=== PATIENT | male | born 1955 | race Caucasian/White ===

== ENCOUNTER 2021-03-27 07:45 | Outpatient (REF) | payer BC, SELFPAY ==
[2021-03-27 11:07] LABS: Hematocrit 50.7 % (42-52); Hemoglobin 16.5 g/dl (14.0-18.0); Mean Corpuscular HGB Conc 32.5 g/dl (31.0-36.0); Mean Corpuscular Hemoglobin 30.2 pg (27.0-33.0); Mean Corpuscular Volume 92.7 fL (80-98); Mean Platelet Volume 9.5 fL (9.4-12.4); Platelet Count 215 X10*3/uL (160-400); Red Blood Count 5.47 X10*6/uL (4.60-5.80); Red Cell Distribution Width 12.3 % (11.0-16.0); White Blood Count 5.2 X10*3/uL (4.8-10.8)
[2021-03-27 11:14] LABS: Estimated Average Glucose 108 mg/dL; Hemoglobin A1c % 5.4 %
[2021-03-27 12:01] LABS: Alanine Aminotransferase 51 U/L (0-40); Albumin Level 4.4 g/dL (3.5-5.0); Alkaline Phosphatase 83 U/L (39-117); Anion Gap 14 (12-20); Aspartate Amino Transferase 37 U/L (5-37); Bilirubin Total 1.1 mg/dL (0.0-1.0); Blood Urea Nitrogen 13 mg/dL (9-16); Calcium 9.1 mg/dL (8.4-10.2); Carbon Dioxide 26 mmol/L (22-29); Chloride 105 mmol/L (96-108); Cholesterol 205 mg/dL; Estimated Glomerular Filt Rate > 60; Glucose Fasting 100 mg/dL (60-99); HDL Cholesterol 69 mg/dL; LDL Cholesterol Calculated 110 mg/dl; Potassium 4.7 mmol/L (3.3-5.1); Sodium 140 mmol/L (135-145); Total Protein 7.1 g/dL (6.5-8.0); Triglycerides 130 mg/dL
[2021-03-27 12:03] LABS: Prostate Specific Antigen 2.13 ng/mL (<0.05-4.0)
== END 2021-03-27 07:46 | disposition home or self-care (01) ==
LOC: HO.MANLDS 07:45
PROVIDERS: PCP Internal Medicine; Visit Provider Internal Medicine
DX: Z12.5 Encounter for screening for malignant neoplasm of prostate (principal); E78.00 Pure hypercholesterolemia, unspecified; R73.01 Impaired fasting glucose
CPT/HCPCS: 36415; 80053; 80061; 83036; 84153; 85027

== ENCOUNTER 2021-09-30 07:29 | Outpatient (REF) | payer BC, SELFPAY ==
[2021-09-30 11:33] LABS: Appearance Urine CLEAR; Color Urine YELLOW; Glucose Urine UA NEG (NEG); Leukocyte Esterase Urine NEG (NEG); Nitrite Urine NEG (NEG); PH 6.5 (5.0-8.0); Specific Gravity - Urine 1.025 (1.005-1.025); UACC Culture Trigger NO; Urine Blood NEG (NEG); Urine Ketones NEG (NEG); Urine Protein 1+ MG/DL (NEG-TRACE)
[2021-09-30 11:57] LABS: RBC Urine 0-2 /HPF (0); WBC Urine 0 /HPF (0-4)
[2021-09-30 11:59] LABS: Mucus Urine 1+ /LPF; Squamous Epithelial Cell Urine TRACE /LPF
== END 2021-09-30 07:30 | disposition home or self-care (01) ==
LOC: HO.MANLDS 07:29
PROVIDERS: PCP Internal Medicine; Visit Provider Internal Medicine
DX: R31.29 Other microscopic hematuria (principal)
CPT/HCPCS: 81001

== ENCOUNTER 2021-12-04 07:33 | Outpatient (REF) | payer BC, SELFPAY ==
[2021-12-04 11:18] LABS: Hemoglobin 16.8 g/dl (14.0-18.0); Mean Corpuscular HGB Conc 32.3 g/dl (31.0-36.0); Mean Corpuscular Hemoglobin 29.9 pg (27.0-33.0); Mean Corpuscular Volume 92.5 fL (80.0-98.0); Mean Platelet Volume 10.3 fL (9.4-12.4); Platelet Count 254 X10*3/uL (160-400); Red Blood Count 5.62 X10*6/uL (4.60-5.80); Red Cell Distribution Width 12.2 % (11.0-16.0); White Blood Count 5.4 X10*3/uL (4.8-10.8)
[2021-12-04 11:29] LABS: Estimated Average Glucose 108 mg/dL; Hemoglobin A1C 151.3305 umol/L; Hemoglobin A1c % 5.4 %
[2021-12-04 11:30] LABS: Alanine Aminotransferase 44 U/L (0-40); Albumin Level 4.4 g/dL (3.5-5.0); Alkaline Phosphatase 88 U/L (39-117); Anion Gap 13 (12-20); Aspartate Amino Transferase 33 U/L (5-37); Blood Urea Nitrogen 15 mg/dL (9-16); Calcium 9.2 mg/dL (8.4-10.2); Carbon Dioxide 29 mmol/L (22-29); Chloride 103 mmol/L (96-108); Cholesterol 208 mg/dL; Estimated Glomerular Filt Rate > 60; Glucose Fasting 108 mg/dL (60-99); HDL Cholesterol 66 mg/dL; LDL Cholesterol Calculated 120 mg/dl; Potassium 4.2 mmol/L (3.3-5.1); Sodium 141 mmol/L (135-145); Total Protein 7.1 g/dL (6.5-8.0); Triglycerides 112 mg/dL
[2021-12-04 11:59] LABS: Prostate Specific Antigen 1.67 ng/mL (<0.05-4.0)
== END 2021-12-04 07:34 | disposition home or self-care (01) ==
LOC: HO.MANLDS 07:33
PROVIDERS: PCP Internal Medicine; Visit Provider Internal Medicine
DX: E78.00 Pure hypercholesterolemia, unspecified (principal); R73.01 Impaired fasting glucose; I10 Essential (primary) hypertension; Z12.5 Encounter for screening for malignant neoplasm of prostate
CPT/HCPCS: 36415; 80053; 80061; 83036; 84153; 85027

== ENCOUNTER 2022-10-12 07:41 | Outpatient (REF) | payer BC, SELFPAY ==
[2022-10-12 11:29] LABS: MANUAL DIFF FLAG NO
[2022-10-12 11:49] LABS: Basophils Absolute Auto 0.1 X10*3/uL (0.0-0.2); Basophils Percent Auto 0.8 % (0-2); Eosinophils Absolute Auto 0.4 X10*3/uL (0.0-0.4); Eosinophils Percent Auto 7.3 % (0-4); Hematocrit 51.7 % (42.0-52.0); Hemoglobin 16.5 g/dl (14.0-18.0); Imm Gran Abs Auto 0.02 X10*3/uL (0.00-0.03); Imm Gran Pct Auto 0.3 % (0.0-0.4); Lymphocytes Absolute Auto 1.3 X10*3/uL (1.2-4.9); Lymphocytes Percent Auto 22.1 % (20-40); Mean Corpuscular HGB Conc 31.9 g/dl (31.0-36.0); Mean Corpuscular Hemoglobin 29.7 pg (27.0-33.0); Mean Platelet Volume 9.9 fL (9.4-12.4); Monocytes Absolute Auto 0.6 X10*3/uL (0.1-1.2); Monocytes Percent Auto 10.6 % (2-11); Neutrophils Absolute Auto 3.6 x10*3/uL (2.0-8.3); Neutrophils Percent Auto 58.9 % (45-73); Platelet Count 241 X10*3/uL (160-400); Red Blood Count 5.56 X10*6/uL (4.60-5.80); Red Cell Distribution Width 12.6 % (11.0-16.0)
[2022-10-12 12:18] LABS: Estimated Average Glucose 111 mg/dL; Hemoglobin A1C 149.9164 umol/L; Hemoglobin A1c % 5.5 %
[2022-10-12 12:48] LABS: Prostate Specific Antigen 2.35 ng/mL (<0.05-4.0); Vitamin D 25-OH Total 9.8 ng/mL (>30)
[2022-10-12 13:46] LABS: Alanine Aminotransferase 41 U/L (0-40); Albumin Level 4.2 g/dL (3.5-5.0); Alkaline Phosphatase 86 U/L (39-117); Anion Gap 14 (12-20); Aspartate Amino Transferase 32 U/L (5-37); Bilirubin Total 0.9 mg/dL (0.0-1.0); Blood Urea Nitrogen 20 mg/dL (9-16); Calcium 9.2 mg/dL (8.4-10.2); Carbon Dioxide 29 mmol/L (22-29); Chloride 103 mmol/L (96-108); Cholesterol 202 mg/dL; Estimated Glomerular Filt Rate > 60; Glucose Random 110 mg/dL (60-115); HDL Cholesterol 71 mg/dL; LDL Cholesterol Calculated 110 mg/dl; Potassium 5.4 mmol/L (3.3-5.1); Sodium 141 mmol/L (135-145); Total Protein 6.7 g/dL (6.5-8.0); Triglycerides 108 mg/dL
== END 2022-10-12 07:42 | disposition home or self-care (01) ==
LOC: HO.MANLDS 07:41
PROVIDERS: Visit Provider Internal Medicine
DX: Z00.00 Encounter for general adult medical examination without abnormal findings (principal); Z12.5 Encounter for screening for malignant neoplasm of prostate; R73.01 Impaired fasting glucose
CPT/HCPCS: 36415; 80053; 80061; 82306; 83036; 84153; 85025

== ENCOUNTER 2022-10-20 09:38 | Outpatient (REF) | payer BC, SELFPAY ==
[2022-10-20 11:35] LABS: Anion Gap 12 (12-20); Blood Urea Nitrogen 20 mg/dL (9-16); Calcium 9.2 mg/dL (8.4-10.2); Carbon Dioxide 31 mmol/L (22-29); Chloride 103 mmol/L (96-108); Estimated Glomerular Filt Rate 55; Glucose Random 92 mg/dL (60-115); Sodium 141 mmol/L (135-145)
[2022-10-20 11:56] LABS: Vitamin D 25-OH Total 14.7 ng/mL (>30)
== END 2022-10-20 09:39 | disposition home or self-care (01) ==
LOC: HO.WFDLDS 09:38
PROVIDERS: Visit Provider Internal Medicine
DX: E87.5 Hyperkalemia (principal); E55.9 Vitamin D deficiency, unspecified
CPT/HCPCS: 36415; 80048; 82306

== ENCOUNTER 2024-02-08 10:33 | Outpatient (REF) | payer MEDICARE, BC, SELFPAY ==
[2024-02-08 13:45] LABS: Alanine Aminotransferase 47 U/L (0-40); Albumin Level 4.5 g/dL (3.5-5.0); Alkaline Phosphatase 96 U/L (39-117); Anion Gap 16 (12-20); Aspartate Amino Transferase 39 U/L (5-37); Bilirubin Total 0.7 mg/dL (0.0-1.0); Blood Urea Nitrogen 15 mg/dL (9-16); Calcium 9.7 mg/dL (8.4-10.2); Carbon Dioxide 28 mmol/L (22-29); Chloride 100 mmol/L (96-108); Estimated Glomerular Filt Rate > 60; Glucose Random 101 mg/dL (60-115); Potassium 5.1 mmol/L (3.3-5.1); Sodium 139 mmol/L (135-145); Total Protein 7.7 g/dL (6.5-8.0)
== END 2024-02-08 10:34 | disposition home or self-care (01) ==
LOC: HO.MANLDS 10:33
PROVIDERS: Visit Provider Physician Assistant
DX: I10 Essential (primary) hypertension (principal)
CPT/HCPCS: 36415; 80053

== ENCOUNTER 2024-12-28 07:49 | Outpatient (REF) | payer MEDICARE, SELFPAY ==
--- OUTSIDE RECORDS SUMMARY | 2024-12-28 07:53 | XMS_ITS | Data Portability ---
Author Organization [facility] Address [address] [place] [address] Assessment Encounter Date Assessment Date Assessment LastModified by Organization Details LastModified Time 01/24/2024 01/24/2024 The patient denies little pleasure in activities they find enjoyable, feeling depressed, difficulties sleeping, feeling tired or having little energy, change in appetite, feeling guilty, overwhelmed or unmotivated. The patient denies suicidal ideation, thoughts of hurting themselves or others. Their mood is appropriate, they show good judgement and clear understanding of the conversation. They are orientated to time, place and person. They are not expressing any concerning thoughts or actions that would need further investigation and treatment for mental health. The patient denies recent falls or recurrent falls. Denies instability, weakness, abnormal gait, or difficulties with movement. The patient wears correct, supportive shoes and is not otherwise severely visually impaired. The patient is full weight bearing and if using the assistance of a cane or walker feels supported and stable with the use of such devices. All medical conditions have been taken into account that may pose a risk for the patient for falls. Home bertram, carpets and/or rugs do not pose a challenge for the patient. The patient has been educated about the use of vitamin D supplementation for bone health and prevention of hypotensive episodes that may increase risk for fall. All question and concerns were answered to the patient's satisfaction. 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 REVIEW OF PRIOR EXTERNAL NOTES/RESULTS, ORDERING OF TEST(S) CATEGORY 2. 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) MDM HIGH MUST MEET 2 OUT OF 3 ELEMENTS: PROBLEMS, DATA OR RISK ELEMENT 1: PROBLEMS 1 OR MORE CHRONIC ILLNESS W/SEVERE EXACERBATION, PROGRESSION MAY REQUIRE HOSPITAL LEVEL CARE OR 1 ACUTE OR CHRONIC ILLNESS OR INJURY THAT POSES A THREAT TO LIFE OR BODILY FUNCTION ELEMENT 2: DATA: MUST MEET 2 OF 3 CATEGORIES CATEGORY 1 REVIEW OF PRIOR EXTERNAL NOTES REVIEW OF THE RESULTS ORDERING OF EACH TEST ASSESSMENT REQUIRING INDEPENDENT HISTORIAN(S) CATEGORY 2: INDEPENDENT INTERPRETATION OF TESTS BY ANOTHER PROVIDER/SPECIALI ST CATEGORY 3: DISCUSSION OF MGT OR TEST INTERPRETATION W/EXTERNAL PHYSICIAN/SPECIAL IST ELEMENT 3: RISK HIGH RISK OF MORBIDITY FROM ADDITIONAL DIAGNOSTIC TESTING OR TREATMENT PROVIDER MUST THOROUGHLY DOCUMENT EACH ELEMENT THAT IS COVERED The patient presented to their appointment today for multiple concerns requiring moderate to high-level decision making and took over 40-45 minutes for an adequate and appropriate history, exam, assessment and treatment plan. This appointment was done with an established patient. Not available 12/18/2024 15:47:27 Plan of Treatment Reminders Order Date Submit Date Provider Last Modified By Organization Details Last Modified Time Details Appointments ANNUAL EXAM 2024 11:30A M DR ASHTON Not available Not available Not available Lab CMP, serum or plasma 2024 025 [facility], [address] [place] [address], [place], [address], 12/18/2024 15:49:01 CBC 2024 025 [facility], [address] [place] [address], [place], [address], 12/18/2024 15:49:01 PSA, serum or plasma 2024 025 [facility], [address] [place] [address], [place], [address], 12/18/2024 15:49:01 lipid panel, blood 2024 025 [facility], [address] [place] [address], [address], 12/18/2024 15:49:01 HbA1c (hemoglob in A1c), blood 2024 025 [facility], [address] [place] [address], [address], 12/18/2024 15:49:01 CMP, serum or plasma 2023 024 [facility], [address] [place] [address], [place], [address], 02/09/2024 11:25:05 Referral sleep medicine referral - home sleep study req 2024 025 [email or web address] Bogdan Curtis MD, [address], [place], [address], 12/18/2024 15:52:15 Procedures None recorded. Surgeries None recorded. Imaging None recorded. Medication Orders meloxicam 15 mg tablet 2024 025 [facility]2024, [address] [place], [address], 12/18/2024 15:47:47 losartan 100 mg tablet 2024 025 [facility]2024, [address] [place], [address], 12/18/2024 15:47:46 finasteri de 5 mg tablet 2024 025 [facility] #2024, [address] [place], [address], 12/18/2024 15:47:46 spironola ctone 25 mg tablet 2023 [id number], [address] [place], [place], [id number], 02/01/2024 09:35:16 amlodipin e 10 mg tablet 2023 024 [facility] #[id number], [address] [place], [place], [phone], 02/01/2024 09:33:23 Patient TargetsNo targets recorded. Patient Instructions Encounter Date Encounter Id Patient Instructions Last Modified By Organization Details Last Modified Time 12/18/2024 [id number] sleep apnea: car e instructions Not available 12/18/2024 15:47:41 high blood pressure: care instructions Not available 12/18/2024 15:47:41 learning about high blood pressure Not available 12/18/2024 15:47:41 benign prostatic hyperplasia: care instructions Not available 12/18/2024 15:47:41 Reason for Referral Sleep Medicine Referral for Sleep apnea home sleep study req Referring Physician: Sergo Ashton, Internal [facility], Encounter Date: 12/18/2024 Results Created Date Observation Date Name Description Value Unit Range Abnormal Flag Note LastModifiedBy Organization Detail LastModifiedTime Result Notes None recorded. Problems Name Problem SNOMED Code Status Onset Date Resolution Date Notes Provider Name and Address Organization Details Recorded Time Varicose veins of lower extremity 21396351 Active 2018 Not Available [facility] 2 12:35:30 Osteoarth ritis 396785611 Active 2020 Not Available [facility] 2 12:35:30 Impaired fasting glycemia 243518736 Active 2017 Leonarda rebolledo [place] [facility] 5 09:35:12 Hyperchol esterolem ia 96907748 Active 2017 LOR Vinson [facility] 5 09:35:12 Essential hypertens ion 28221855 Active 2017 Leonardacedrick Solomon kesha, [facility] 5 09:35:12 Ulnar nerve entrapmen t 911145029 Active 2017 Leonardacedrick Solomon null, [facility] 5 09:35:12 Family history of diabetes mellitus 051112337 Active 2017 Leonardacedrick Solomon null, [facility] 5 09:35:12 Acute bronchiti s 24177733 Active 2021 Leonardacedrick Solomon null, [facility] 5 09:35:02 Benign prostatic hyperplas ia 497731762 Active 2021 Leonarda rebolledo, [facility] 5 09:35:12 Cough 56969652 [facility] 2022 [facility] 5 09:35:02 Cervical radiculop athy 28138818 Active 2023 Leonarda Solomon null, [facility] 5 09:35:12 Neck pain 97454799 Active 2023 Leonardacedrick Solomon kesha, [facility] 5 09:35:02 Cervical arthritis 826036846 Active 2023 [facility] 5 09:35:12 Hypertens adam disorder 53402060 Active 2023 Leonarda Solomon kesha, [facility] 5 09:35:12 Subacromi al bursitis of right shoulder 644198660750 9109 Active 2023 Leonardacedrick Solomon kesha, [facility] 5 09:35:12 Sleep apnea 61880798 Active 2024 Sergo Ashton, DO [address] [facility], [place], [address], [facility] 5 15:45:40 Tear of meniscus of knee 155333688 Active 2017 Not Available [facility] 12:35:30 Problem Notes None recorded. Procedures Surgical History Date Name Laterality Status Provider Name and Address Organization Details Recorded Time 024 Corticosteroid Injection completed Sergo Ashton DO [address] [place] [address], [phone], [facility], [facility] 03/19/2024 11:57:43 022 Colonoscopy completed Dorothy Joe [facility] 12/02/2021 10:58:31 019 Corticosteroid Injection completed Sergo Ashton [address] [place] [address], [phone], [facility] 08/03/2019 10:16:18 019 Corticosteroid Injection completed Sergo Ashton [address], [address], [facility] 12/08/2018 14:13:02 Imaging Results None recorded. Procedure Notes None recorded. Medical Equipment None Reported. Allergies Allergen ID Allergen Name Allergen Category Reaction Reaction Severity Criticality Documentation Date Start Date Code Code System Note Provider Name and Address Organization Details Recorded Time 411 Skelaxin medicatio n Not available Not available Not available 11/23/2017 64732 5 RxNorm Dorothy rebolledo [facility] 8 13:39:25 412 Substance with sulfonami de structure and antibacte rial mechanism of action (substanc e) medicatio n Not available Not available Not available 11/23/2017 64853 8003 SNOMED [facility] 8 13:39:30 Medications Name Sig Start Date Stop Date Status Note LastModified by Organization Details LastModified Time amoxicill in 500 mg capsule TAKE 4 CAPSULES BY MOUTH BEFORE PROCEDUR E 01/23 completed Not Available Not Available Not Available prednison e 10 mg tablet TAKE 4 TABLETS BY MOUTH DAILY X2DAYS 3 TABLETS DAILY X2DAYS 2 TABLETS DAILY X2DAYS 1 TABLET DAILY X2DAYS 01/23 completed Not Available Not Available Not Available azithromy zoila 250 mg tablet TAKE 2 TABLETS (500 MG) BY ORAL ROUTE ONCE DAILY FOR 1 DAY THEN 1 TABLET (250 MG) BY ORAL ROUTE ONCE DAILY FOR 4 DAYS 07/08 completed Not Available Not Available Not Available benzonata te 200 mg capsule TAKE 1 CAPSULE BY MOUTH THREE TIMES DAILY FOR 14 DAYS NEEDED 01/23 completed Not Available Not Available Not Available hydrocodo ne 5 mg-acetam inophen 325 mg tablet 08/18 completed Not Available Not Available Not Available meloxicam 15 mg tablet TAKE 1 TABLET BY MOUTH EVERY DAY 2024 active Not Available Not Available Not Avai lable lisinopri l 20 mg tablet take 1 tablet by mouth once daily 07/16 completed Not Available Not Available Not Available amlodipin e 5 mg tablet TAKE 1 TABLET BY MOUTH EVERY DAY 01/31 completed take two, will increase his medicati on Not Available Not Available Not Available lovastati n 10 mg tablet 02/06 completed Not Available Not Available Not Available spironola ctone 25 mg tablet TAKE 1 TABLET BY MOUTH EVERY DAY active Not Available Not Available No t Available amoxicill in 500 mg tablet TAKE 4 TABLETS BY MOUTH 1 HOUR PRIOR TO DENTAL APPOINTM ET 01/23 completed Not Available Not Available Not Available oxycodone -acetamin ophen 5 mg-325 mg tablet 12/11 completed Not Available Not Available Not Available tamsulosi n 0.4 mg capsule TAKE 1 CAPSULE BY MOUTH EVERY DAY active Not Available Not Available No t Available amlodipin e 10 mg tablet TAKE 1 TABLET BY MOUTH EVERY DAY 01/31 completed Not Available Not Available Not Available benzonata te 100 mg capsule 12/11 completed Not Available Not Available Not Available Tylenol 325 mg tablet Take 2 tablets every 6 hours by oral route. 05/08 completed Not Available Not Available Not Available diclofena c sodium 75 mg tablet,de layed release 02/06 completed Not Available Not Available Not Available codeine 10 mg-guaife nesin 100 mg/5 mL oral liquid Take 10 mL every 4 hours by oral route as needed for 7 days. 07/20 completed Not Available Not Available Not Available methylpre dnisolone 4 mg tablets in a dose pack FOLLOW PACKAGE DIRECTIO NS 07/08 completed Not Available Not Available Not Available albuterol sulfate HFA 90 mcg/actua tion aerosol inhaler INHALE 2 PUFFS BY MOUTH EVERY 4 HOURS active Not Available Not Available No t Available lisinopri l 40 mg tablet take 1 tablet by mouth once daily 12/11 completed Not Available Not Available Not Available losartan 100 mg tablet TAKE 1 TABLET BY MOUTH EVERY MORNING NO FULL MONTH SUPPLY-N EEDS APPT.... CALL OFFICE 2024 active Not Available Not Available Not Avai lable finasteri de 5 mg tablet Take 1 tablet every day by oral route for 30 days. 2024 active Not Available Not Available Not Avai lable amoxicill in 875 mg-potass ium clavulana te 125 mg tablet TAKE 1 TABLET BY MOUTH EVERY 12 HOURS FOR 7 DAYS 01/23 completed Not Available Not Available Not Available oxycodone 5 mg tablet 12/11 completed Not Available Not Available Not Available Hyalgan 10 mg/mL intra-art icular syringe 08/18 completed Not Available Not Available Not Available rosuvasta tin 5 mg tablet TAKE 1 TABLET BY MOUTH EVERY DAY active Not Available Not Available No t Available Boostrix Tdap 2.5 Lf unit-8 mcg-5 Lf/0.5 mL intramusc ular syringe 07/16 completed Not Available Not Available Not Available chlorhexi dine gluconate 0.12 % mouthwash 08/18 completed Not Available Not Available Not Available Vitamin D3 active Not Available Not Available Not Available diclofena c 1 % topical gel Apply 1 g 4 times a day by topical route as needed for 30 days. 08/18 completed Not Available Not Available Not Available Prevnar 13 (PF) 0.5 mL intramusc ular syringe 07/16 completed Not Available Not Available Not Available Afluria (PF) 45 mcg(15 mcg x 3)/0.5 mL intramusc ular syringe 08/18 completed Not Available Not Available Not Available Shingrix (PF) 50 mcg/0.5 mL intramusc ular suspensio n, kit 07/16 completed Not Available Not Available Not Available Afluria Quad (PF) 60 mcg (15 mcg x 4)/0.5 mL IM syringe 08/18 completed Not Available Not Available Not Available Flucelvax Quad 60 mcg (15 mcg x 4)/0.5 mL intramusc ular susp 07/16 completed Not Available Not Available Not Available BinaxNOW COVID-19 Ag Self Test kit TEST DIRECTED TODAY 07/08 completed Not Available Not Available Not Available Vitals Date Recorded Body height Body mass index (BMI) Body weight Heart rate Oxygen saturation Oxygen saturation in Arterial blood by Pulse oximetry Systolic blood pressure Diastolic blood pressure Provider Name and Address Organization Details Last Updated DateTime 4 177.8 cm 34.3 kg/m2 607512. 01 g 80 /min 97 % 97 % 144 mm[Hg] 88 mm[Hg] Leonarda Solomon [facility] 4 09:50:53 Date Recorded Body height Body mass index (BMI) Body weight Heart rate Oxygen saturation Oxygen saturation in Arterial blood by Pulse oximetry Systolic blood pressure Diastolic blood pressure Provider Name and Address Organization Details Last Updated DateTime 4 177.8 cm 34.6 kg/m2 458560. 76 g 71 /min 99 % 99 % 152 mm[Hg] 90 mm[Hg] Leonarda Solomon [facility] 4 09:27:56 Date Recorded Body height Body mass index (BMI) Body weight Heart rate Oxygen saturation Oxygen saturation in Arterial blood by Pulse oximetry Systolic blood pressure Diastolic blood pressure Provider Name and Address Organization Details Last Updated DateTime 4 177.8 cm 34 kg/m2 084619. 31 g 62 /min 98 % 98 % 158 mm[Hg] 90 mm[Hg] Leonarda Solomon [facility] 4 10:10:30 Date Recorded Body height Body mass index (BMI) Body weight Heart rate Oxygen saturation Oxygen saturation in Arterial blood by Pulse oximetry Systolic blood pressure Diastolic blood pressure Provider Name and Address Organization Details Last Updated DateTime 5 177.8 cm 32.4 kg/m2 535153. 88 g 64 /min 97 % 97 % 130 mm[Hg] 86 mm[Hg] Leonarda Solomon [facility] 5 15:38:33 Social History Question Answer Notes LastModified by Organizat ion Details LastModified Time Tobacco Smoking Status Never Smoker Not Available [facility] 07/22/2020 03:36:23 What Was The Date Of Your Most Recent Tobacco Screening? 12/18/2024 [email or web address] Information not available 12/18/2024 Do You Or Have You Ever Used Any Other Forms Of Tobacco Or Nicotine? No Information not available 07/20/2022 Sex: Unknown Functional Status None recorded. Mental Status None recorded. Family History Nothing Reported. Medical History No medical history recorded. Immunizations Vaccine Type Date Status Note Provider Nam e and Address Organization Details Recorded Time COVID-19, mRNA, LNP-S, PF, 30 mcg/0.3 mL dose 06/15/20 21 completed Not Available [facility] 11/25/2022 15:40:15 Influenza, split virus, quadrivalent, preservative 06/15/20 21 completed Not Available [facility] 11/25/2022 15:40:15 COVID-19, mRNA, LNP-S, PF, 30 mcg/0.3 mL dose 12/25/19 22 completed Not Available [facility] 11/25/2022 15:40:15 Influenza, split virus, quadrivalent, preservative 07/09/20 18 completed Not Available [facility] 11/25/2022 15:40:15 Influenza, split virus, quadrivalent, preservative 07/14/20 22 completed Not Available [facility] 11/25/2022 15:40:15 COVID-19, mRNA, LNP-S, PF, 100 mcg/0.5mL dose or 50 mcg/0.25mL dose 07/14/20 22 completed Not Available [facility] 11/25/2022 15:40:15 Respiratory syncytial virus (RSV) MAB, unspecified 07/25/20 23 completed Sergo Ashton, DO [address] [place] [address], [place], [address], [facility] 12/18/2024 15:41:11 zoster live 03/06/20 19 completed Not Available [facility] 11/25/2022 15:40:15 Tdap 03/06/20 21 completed Not Available [facility] 11/25/2022 15:40:15 Influenza, split virus, quadrivalent, preservative 06/03/20 19 completed Not Available [facility] 11/25/2022 15:40:15 Pneumococcal conjugate PCV 13 07/15/20 19 completed Not Available [facility] 11/25/2022 15:40:15 Influenza, split virus, quadrivalent, preservative 07/10/20 20 completed Not Available [facility] 11/25/2022 15:40:15 pneumococcal polysaccharide PPV23 07/10/20 20 completed Not Available [facility] 11/25/2022 15:40:15 zoster live 06/03/20 19 completed Not Available [facility] 11/25/2022 15:40:15 COVID-19, mRNA, LNP-S, PF, 30 mcg/0.3 mL dose 11/22/19 21 completed Not Available [facility] 11/25/2022 15:40:15 COVID-19, mRNA, LNP-S, PF, 30 mcg/0.3 mL dose 12/13/19 21 completed Not Available [facility] 11/25/2022 15:40:15 Past Encounters Encounter ID Performer Location Encounter Start Date Encounter Closed Date Diagnosis/Indication Diagnosis SNOMED-CT Code Diagnosis ICD10 Code Diagnosis Note [id number] Sergo Ashton [facility] [address] [facility],[place] [address] 02/06/2018 16:09:10 02/06/2018 17:03:51 Essential hypertension 52815997 I10 doing quite well and is feeling slowly better Tear of me niscus of knee 968667352 S83.206D Hyperlipidemia 10774397 E78.00 [id number] Sergo Ashton [facility] [address] [facility],[place] [address] 08/18/2018 16:22:59 08/21/2018 09:11:08 Essential hypertension 40482621 I10 doing quite well and is feeling slowly better Impaired f asting glycemia 780663663 R73.01 will need to get lab and will have this ordered Osteoarthr itis of knee 369573361 M17.9 had hyalgan arthroscop y but has a bone on bone situation [id number] Sergo Ashton [facility] [address] [facility],[place] [address] 12/08/2018 13:47:43 12/08/2018 14:35:19 Tear of meniscus of knee 417533491 S83.206D with knee osteoarthr itis tolerated kenalog after draining the joint [id number] Sergo Ashton [facility] [address] [facility], [place] [address] 07/16/2019 11:11:18 07/16/2019 12:04:58 Essential hypertension 02567260 I10 doing quite well and is feeling better 140/70 and discussed taking the bp med at night [id number] Sergo Campsheridan [facility] [address] [place] [address], [place] [address] 08/03/2019 09:28:57 08/03/2019 10:19:24 Osteoarthritis of right knee joint 9182862487 60685 M17.11 did fredy injection well tolerated no aspirate [id number] Sergo Linn Jesus [facility] [address] [place] [address], [place] [address] 08/31/2019 14:31:02 08/31/2019 15:11:31 Pre-surgery evaluation 701364052 Z01.818 patient is currently CLEARED for the proposed right knee replacemen t surgery. According to the 2017 ACC risk assessment ( revised) he is considered a low risk for this procedure. / pt understand s to take his usual medication s on the day of his surgery. [id number] Sergo NoreenMando Jesus [facility] [address] [place] [address], [place] [address] 12/12/2019 14:30:53 12/12/2019 15:06:24 Right inguinal hernia 441426931 K40.90 Cough 24380705 R05 benign and c/w prior viral infect and is a residual post infect reactive airway will treat conserv mucinex fluids cough suppress [id number] Sergo NoreenMando Jesus [facility] [address] [facility], [facility] [place] [address] 03/11/2021 10:44:43 03/11/2021 12:06:30 Essential hypertension 20315229 I10 doing quite well and is feeling better 140/70 and discussed taking the bp med at night Hypercholesterolemia 136 61604 E78.00 tolerates rosuvastat he gets this for free!!!! Impaired f asting glycemia 646760758 R73.01 will need to get lab and will have this ordered Osteoarthritis 169115986 M19.90 diffuse , involves multiple joints we will try meloxicam Environmental allergy 42 3383078 T78.49XD he has a cat that sleeps with him every day and the morning is when he has the worse nasal symptomsto ld him that he will not get better while cats are in house [id number] Sergo Ashton [facility] [address] [facility],[place] [address] 05/08/2021 09:04:04 05/08/2021 10:58:54 Hypercholesterolemia 70973114 E78.00 tolerates rosuvastat he gets this for free!!!! Essential hypertension 30879124 I10 doing quite well and is feeling better 140/70 and discussed taking the bp med at night Impaired f asting glycemia 935457128 R73.01 will need to get lab and will have this ordered Lesion of skin of face 2490114943 06 L98.9 will have him get seen by derm Screening for malignant neoplasm of colon 100149633 Z12.11 [id number] Sergo Ashton [facility] [address] [facility],[place] [address] 12/14/2021 11:50:22 12/14/2021 13:24:29 Hypercholesterolemia 77860647 E78.00 tolerates rosuvastat he gets this for free!!!! Impaired f asting glycemia 843775842 R73.01 a1c is 5.4 Essential hypertension 54528986 I10 doing quite well and is feeling better 140/70 and discussed taking the bp med at night Osteoarthritis 844763246 M19.90 diffuse , involves multiple joints we will try meloxicam [id number] RICA STEIN [facility] [address] [facility],[place] [address] 05/18/2022 10:37:42 05/18/2022 14:37:34 Acute bronchitis 97203870 J20.8 will start on z-amol and cough syrup [id number] Sergo Ashton [facility] [address] [facility],[place] [address] 07/20/2022 13:45:23 07/20/2022 15:51:36 Active or passive immunization 849890685 Z23 patient advised he is due for flu shot Adult heal th examination 777593791 Z00.00 Hepatitis C screening 41 7233975 Z11.59 no need for chk Impaired f asting glycemia 710330084 R73.01 a1c is 5.4 Hypercholesterolemia 136 89479 E78.00 tolerates rosuvastat he gets this for free!!!! [id number] Sergo Ashton DO [facility] [address] [facility] [address] [address] 07/08/2023 14:34:32 07/08/2023 15:45:20 Essential hypertension [id number] I10 doing quite well and is feeling better 140/70 and discussed taking the bp med at night Hypercholesterolemia 136 21858 E78.00 tolerates rosuvastat he gets this for free!!!! Impaired f asting glycemia 510225861 R73.01 a1c is 5.4 Cough 28603476 R05.9 [id number] RICA STEIN [facility] [address] [facility],[place] [address] 11/16/2023 10:05:38 11/18/2023 14:54:31 Neck pain 64169882 M54.2 [id number] RICA STEIN [facility] [address] [facility],[place] [address] 01/24/2024 09:39:11 01/25/2024 11:33:45 Depression screening [id number] Z13.31 stable Hypertensive disorder 38 773806 I10 will have him bump up to 10 mg and fu in a week [id number] RICA STEIN [facility] [address] [facility] [address] [address] 02/01/2024 09:16:59 02/03/2024 14:37:16 Essential hypertension 17102949 I10 will set up with [id number] RICA STEIN [facility] [address] [facility] [address] [address] 02/08/2024 09:56:10 02/08/2024 16:17:20 Essential hypertension 40514779 I10 doing okaywant to check his potassium level before adjusting his medication agreed to bloodwork Impaired f asting glycemia 419861402 R73.01 stable [id number] Sergo Ashton [facility] Internal Medicine [address] [facility] [address],[place] [address] 03/19/2024 11:28:46 03/19/2024 12:36:13 Subacromial bursitis of right shoulder [id number] M75.51 fredy well soumya [id number] Sergo Linn Jesus [facility] Internal Medicine [address] [facility] [address],[place] [address] 12/18/2024 15:11:00 12/18/2024 15:52:15 Hypertensive disorder 67702258 I10 stable no issues Hypercholesterolemia 136 03071 E78.00 tolerates rosuvastat he gets this for free!!!! Depression screening 171 147159 Z13.31 neg Impaired f asting glycemia 348726603 R73.01 a1c is 5.4 Essential hypertension 04252346 I10 doing quite well and is feeling better 140/70 and discussed taking the bp med at night Benign pro static hyperplasia 051280987 N40.1 Osteoarthritis 464812165 M19.90 diffuse , involves multiple joints we will try meloxicam Sleep apnea 29767251 G47 .30 will refer for study Health Concerns Section Related Observation LastModified by Organization Detai ls LastModified Time None Recorded Concern Status LastModified by Organization Details LastModified Time None Recorded Advance Directives Directive None Recorded Payers Encounter Date Sequence Insurance Name Policy Number Policy Infante Covered Member ID Infante Member ID Guarantor Name 01/24/2024 1 [place] [employer] Pierre Perez [id number] Pierre Perez 01/24/2024 2 [facility] ([place]O) 113 Pierre Perez [id number] Pierre Perez 02/01/2024 1 [place] Pierre Perez [id number] 06 Pierre Perez 02/01/2024 2 [facility] 113 Pierre Perez [id number] Pierre Perez 02/08/2024 1 [place] Pierre Perez [id number] 06 Pierre Perez 02/08/2024 2 [place] 113 Pierre Perez [id number] Pierre Perez 03/19/2024 1 [place] Pierre Perez [id number] 06 Pierre Perez 03/19/2024 2 [place] 113 Pierre Perez [id number] Pierre Perez 12/18/2024 1 [place] PPO) [id number] Pierre Perez [id number] Pierre Perez Notes Date Note Type Note Provider Name and Address Organization Details Recorded Time 01/24/20 24 text/htm l f/u HTN the patient reports that he has been having intermittently high BP, does use a wrist cufffound after a life insurance screening HTN: much improved from where it startedthe patient will continue to monitor his BPwill take an extra of the amlodipine no side effects feeling goodalso just started a new diet to help him lose weight and trying to walk more will f/u in a week to check how his BP RICA STEIN [address] [place], [address], [facility] 01/24/2024 10:14:30 02/01/20 24 text/htm l 1 week f/u BP the patient reports amlodipine caused swellingwhich he was advised could be a side effect to look out forwill switch out to spironolactone HTN: will adjust his medicationsthe patient will fu in a week BP isn't severely elevated and he feels goodwill call if anything changes or any new symptoms fu in a week RICA STEIN [address] [place], [address], [facility] 02/01/2024 09:42:37 02/08/20 24 text/htm l 1 week f/u BP much better off the amlodipinegiven he is on both the spironolactone and losartan, want to check his potassium levelseemed to feel better on the spironolactone, but could switch it out to an alternativenot HTCZ, did not have effect with that will fu after blood draw RICA STEIN [address] [place], [address], [facility] 02/08/2024 10:31:23 03/19/20 24 text/htm l here for fredy inj of his right shoulderhas been very sore for the last 3 weeks Sergo Ashton DO [address] [place], [address], [facility] 03/19/2024 11:59:06 12/19/19 25 text/htm l Care Management - HyperlipidemiaReported bypatient.Control:usually well controlled; improving; at goal Complications:no coronary artery disease; no heart attack; no cardiovascular disease; no pancreatitis; no strokeCare Management - HypertensionReported bypatient.Self Care:not under emotional stress Severity:symptoms are improving; does not interfere with daily activities Associated Symptoms:no dizziness; no lightheadedness; no chest pain; no shortness of breath; no palpitations; no edema; no calf muscle cramps; no blurred vision; no confusion; no headaches; no fatigue here for rechk of meds and other issueshas tinnitus for years cant do much about thiswife says he snores and has episodes of choking type soundalso having signif nocturia despite the tamsulosinalso wondering to stop the asareviewed all his vaccines and is totally utd Sergo Ashton DO [address] [place], [address], [facility] 12/18/2024 15:50:29
[2024-12-28 13:20] LABS: MANUAL DIFF FLAG NO
[2024-12-28 13:28] LABS: Basophils Absolute Auto 0.1 X10*3/uL (0.0-0.2); Basophils Percent Auto 0.9 % (0-2); Eosinophils Absolute Auto 0.3 X10*3/uL (0.0-0.4); Eosinophils Percent Auto 5.4 % (0-4); Hematocrit 51.2 % (42.0-52.0); Imm Gran Abs Auto 0.04 X10*3/uL (0.00-0.03); Imm Gran Pct Auto 0.7 % (0.0-0.4); Lymphocytes Absolute Auto 1.3 X10*3/uL (1.2-4.9); Mean Corpuscular HGB Conc 33.2 g/dl (31.0-36.0); Mean Corpuscular Volume 93.3 fL (80.0-98.0); Mean Platelet Volume 9.9 fL (9.4-12.4); Monocytes Absolute Auto 0.6 X10*3/uL (0.1-1.2); Monocytes Percent Auto 11.3 % (2-11); Neutrophils Absolute Auto 3.3 x10*3/uL (2.0-8.3); Neutrophils Percent Auto 58.7 % (45-73); Platelet Count 248 X10*3/uL (160-400); Red Blood Count 5.49 X10*6/uL (4.60-5.80); Red Cell Distribution Width 12.3 % (11.0-16.0); White Blood Count 5.6 X10*3/uL (4.8-10.8)
[2024-12-28 13:44] LABS: Estimated Average Glucose 103 mg/dL; Hemoglobin A1C 147.7967 umol/L; Hemoglobin A1c % 5.2 % (<6.0); Total Hemoglobin (HGBA1C) 4437.8238 umol/L
[2024-12-28 13:46] LABS: Alanine Aminotransferase 56 U/L (0-40); Albumin Level 4.2 g/dL (3.5-5.0); Alkaline Phosphatase 77 U/L (39-117); Anion Gap 10 (12-20); Aspartate Amino Transferase 43 U/L (5-37); Blood Urea Nitrogen 18 mg/dL (9-16); Calcium 9.3 mg/dL (8.4-10.2); Carbon Dioxide 30 mmol/L (22-29); Chloride 104 mmol/L (96-108); Cholesterol 192 mg/dL (<200); Estimated Glomerular Filt Rate > 60; Glucose Random 111 mg/dL (60-115); HDL Cholesterol 75 mg/dL (>40); LDL Cholesterol Calculated 96 mg/dL (<100); Potassium 4.7 mmol/L (3.3-5.1); Sodium 139 mmol/L (135-145); Total Protein 6.9 g/dL (6.5-8.0); Triglycerides 107 mg/dL (<150)
[2024-12-28 14:01] LABS: Prostate Specific Antigen 1.59 ng/mL (<0.05-4.0)
== END 2024-12-28 07:50 | disposition home or self-care (01) ==
LOC: HO.MANLDS 07:49
PROVIDERS: Visit Provider Internal Medicine
DX: Z12.5 Encounter for screening for malignant neoplasm of prostate (principal); I10 Essential (primary) hypertension; E78.00 Pure hypercholesterolemia, unspecified; R73.01 Impaired fasting glucose
CPT/HCPCS: 36415; 80053; 80061; 83036; 84153; 85025